=== PATIENT | female | born 1955 | race Caucasian/White ===

== ENCOUNTER → 2017-02-22 | Outpatient (CLI) | payer OTHER ==
[~2017-02-22] MED LIST: ARMO50TA2 PO; ASCO500C PO; CALC600T PO; CHOL20004 PO; CLON0.1T PO; CYCL10TA2 PO; ERGO500012 PO; ESTR42.53 VG; EZET1TAB19 PO; FERR-26 PO; GABA-586 PO; GLYB2.5T2 PO; HYDR-2666 PO; IBUP200T77 PO; LEVO100T5 PO; LISI-334 PO; MAGN250T5 PO; MELO-156 PO; MULT1CAP15 PO; OXYB5TAB7 PO; SITA1TAB11 PO; ZALE10CA PO; ZINC50TA29 PO
== END | disposition home or self-care (01) ==
LOC: LAB 10:07
PROVIDERS: ATTEND Family Medicine
DX: E11.9 Type 2 diabetes mellitus without complications (principal)
CPT/HCPCS: 36415; 83036

== ENCOUNTER → 2018-08-09 | Outpatient (CLI) | payer OTHER ==
[~2018-08-09] MED LIST changes: -CHOL20004 PO; +CHOL200074 PO; -ERGO500012 PO; +ERGO500027 PO; -EZET1TAB19 PO; +EZET1TAB41 PO; -FERR-26 PO; +FERR325T14 PO; -HYDR-2666 PO; +HYDR-2758 PO; +MAGN250T10 PO; -MAGN250T5 PO; -MELO-156 PO; +MELO7.5T29 PO
--- NOTE | 2018-08-09 15:02 | CARD ---
MR#: [id number] Date of Study: 08/09/2018 Ordering Physician: JANES FIELDS, Referring Physician: JANES FIELDS Tech: Aria Gonzalez RDCS APPROVED REPORT EXAM: Two-dimensional and M-mode echocardiogram with Doppler and color Doppler. Other Information Quality : GoodHR: 83bpm Rhythm : NSR INDICATION Hypertension/HCVD 2D DIMENSIONS RVDd3.7 (2.9-3.5cm)IVSd1.4 (0.7-1.1cm) Aortic Root(2D)3.3 (2.0-3.7cm)LVDd4.0 (3.9-5.9cm) LVOT Diameter2.2 (1.8-2.4cm)PWd0.9 (0.7-1.1cm) LVDs2.1 (2.5-4.0cm)FS (%) 48.0 % SV56.2 mlLVEF(%)79.9 (>50%) M-Mode DIMENSIONS RVDd2.86 (2.1-3.2cm)Left Atrium(MM)3.57 (2.5-4.0cm) IVSd1.25 (0.7-1.1cm)Aortic Root2.60 (2.2-3.7cm) LVDd4.72 (4.0-5.6cm)PWd0.86 (0.7-1.1cm) IVSs1.39 cmFS (%) 48 % LVDs2.43 (2.0-3.8cm)ESV(Teich)20.8 ml PWs1.54 cmLVEF(%)80 (>50%) Aortic Valve AoV Peak Justyn.156.0cm/sAoV VTI30.1cm AO Peak GR.9.7mmHgLVOT Peak Justyn.123.3cm/s AO Mean GR.6mmHgAVA (VMAX)3.07cm2 ORI (VTI)2.80cm2 Mitral Valve MV E Fwxgbmef07.9cm/sMV E Peak Gr.4mmHg MV DECEL [id number] A Klparbfm187.3cm/s MV E Mean Gr.2mmHgE/A Ratio0.6 MV A Qrkbmsrc54um Pulmonary Valve PV Peak Hgzussji914.2cm/s Tricuspid Valve TR P. Zknkqtoo313xm/sRAP YTYXVGHQ2gjQk TR Peak Gr.70agOzBVWJ42kwTy Pulmonary Vein S1 Aqoyrdnn16.3cm/sD2 Ekmamfhy52.5cm/s PVa cjlotcbc37znok LEFT VENTRICLE The left ventricle is normal size. There is mild concentric left ventricular hypertrophy. The left ve ntricle is hyperdynamic. The Ejection Fraction is >70%. There is normal LV segmental wall motion. Tra nsmitral Doppler flow pattern is Grade I-abnormal relaxation pattern. RIGHT VENTRICLE The right ventricle is borderline dilated. There is normal right ventricular wall thickness. The righ t ventricular systolic function is normal. ATRIA The left atrium size is normal. The right atrium size is normal. The interatrial septum is intact wit h no evidence for an atrial septal defect or patent foramen ovale as noted on 2-D or Doppler imaging. AORTIC VALVE The aortic valve is thickened but opens well. Doppler and Color Flow revealed no significant aortic r egurgitation. There is no significant aortic valvular stenosis. MITRAL VALVE The mitral valve is normal in structure and function. There is no evidence of mitral valve prolapse. There is no mitral valve stenosis. Doppler and Color Flow revealed no mitral valve regurgitation note d. TRICUSPID VALVE The tricuspid valve is normal in structure and function. Doppler and Color Flow revealed trace tricus pid regurgitation. The PA pressure was estimated at 32 mmHg. Doppler and Color Flow revealed mild pul monary hypertension. There is no tricuspid valve prolapse or vegetation. There is no tricuspid valve stenosis. PULMONIC VALVE The pulmonary valve is normal in structure and function. Doppler and Color Flow revealed no pulmonic valvular regurgitation. There is no pulmonic valvular stenosis. GREAT VESSELS The aortic root is normal in size. The ascending aorta is normal in size. The IVC is normal in size a nd collapses >50% with inspiration. PERICARDIAL EFFUSION There is no evidence of significant pericardial effusion. Critical Notification Critical Value: No <Conclusion> The left ventricle is hyperdynamic. The Ejection Fraction is >70%. There is normal LV segmental wall motion. Signed by : Kirt Guerrero, Electronically Approved : 08/09/2018 15:01:35
== END | disposition home or self-care (01) ==
LOC: ECHO 13:57
PROVIDERS: ATTEND Internal Medicine Cardiovascular Disease
DX: I27.20 Pulmonary hypertension, unspecified (principal); E55.9 Vitamin D deficiency, unspecified; I10 Essential (primary) hypertension; E03.9 Hypothyroidism, unspecified; E78.00 Pure hypercholesterolemia, unspecified; Z72.0 Tobacco use
CPT/HCPCS: 93306

== ENCOUNTER 2019-06-18 13:05 | Emergency (ER) | payer OTHER, MEDICARE ==
[~2019-06-18] VITALS: Ht 167.6 cm; Wt 85.7 kg
[~2019-06-18 13:05] MED LIST changes: -GABA-586 PO; +GABA300C18 PO; -HYDR-2758 PO; +HYDR-2761 PO; -ZINC50TA29 PO; +ZINC50TA39 PO
[2019-06-18 13:21] VITALS: BP 152/78
--- NOTE | 2019-06-18 14:13 | PHYS DOC ---
Past Medical History Past Medical History: Constipation, Diabetes-Type II, High Cholesterol, H ypertension, Hypothyroid, Other Additional Past Medical Histor: SLEEP APNEA,CHRONIC PAIN Past Surgical History: Other Additional Past Surgical Histo: LEFT KNEE SURGERY,THYROID LUMPECTOMY Smoking: Quit Greater Than 1 Year Alcohol Use: Occasionally Drug Use: None Adult General Chief Complaint Chief Complaint: KNEE INJURY [facility] HPI Patient is a 64 year old female who presents with right knee pain. Pain started 1 week ago after she hyperextended her knee. The patient states she bent down yesterday and heard pop in her right knee and severe pain started at that point. The patient's been icing her knee, but has had difficulty bearing weight on the knee today. Rates her pain as 10 out of 10 in severity, and sharp. Review of Systems Review of Systems Constitutional: Denies fever or chills [] Eyes: Denies change in visual acuity, redness, or eye pain [] HENT: Denies nasal congestion or sore throat [] Respiratory: Denies cough or shortness of breath [] Cardiovascular: No additional information not addressed in HPI [] : Denies dysuria or hematuria [] Musculoskeletal: Reports R knee pain. Integument: Denies rash or skin lesions [] Neurologic: Denies headache, focal weakness or sensory changes [] Complete systems were reviewed and found to be within normal limits, except as documented in this note. Current Medications Current Medications Current Medications Medications (Trade) Dose Ordered Sig/[facility] Start Time Stop Time Status Last Admin Dose Admin Ketorolac Tromethamine (Toradol Im) 30 mg 1X ONCE 06/18/19 14:45 06/18/19 14:46 DC 06/18/19 14:45 30 MG Allergies Allergies Allergies Coded Allergies Type Severity Reaction Last Updated Verified No Known Drug Allergies 03/12/14 No Physical Exam Physical Exam Constitutional: Well developed, well nourished, no acute distress, non-toxic ap pearance. [] HENT: Normocephalic, atraumatic, bilateral external ears normal, oropharynx moist, no oral exudates, nose normal. [] Eyes: PERRLA, EOMI, conjunctiva normal, no discharge. [] Neck: Normal range of motion, no tenderness, supple, no stridor. [] Cardiovascular:Heart rate regular rhythm, no murmur [] Lungs & Thorax: Bilateral breath sounds clear to auscultation [] Abdomen: Bowel sounds normal, soft, no tenderness, no masses, no pulsatile masses. [] Skin: Warm, dry, no erythema, no rash. [] Extremities: R knee tenderness and mild edema. Neurologic: Alert and oriented X 3, normal motor function, normal sensory function, no focal deficits noted. [] Psychologic: Affect normal, judgement normal, mood normal. [] Current Patient Data Vital Signs Vital Signs Date Time Temp Pulse Resp B/P (MAP) Pulse Ox O2 Delivery O2 Flow Rate FiO2 06/18/19 13:21 98.3 112 20 152/78 (102) 98 Room Air 98.3 EKG EKG [] Radiology/Procedures Radiology/Procedures [] PATIENT: ASHU HUNTER ACCOUNT: [id number] : 1955 LOCATION: ER AGE: 64 SEX: F EXAM STATUS: REG ER ORD. PHYSICIAN: YINA SWARZT APRN REASON: PAIN WITH LIMITED RANGE OF MOTION, NO KNOWN INJURY PROCEDURE: KNEE RIGHT 3V Right knee 3 views. HISTORY: Pain with limited range of motion 3 views were taken of the right knee. There is mild arthritis with mild spurring. There is no fracture or joint effusion or other osseous abnormality. IMPRESSION: 1. Mild arthritis right knee. Electronically signed by: Robi Feng MD (06/18/2019 2:32 PM) [facility] DICTATED and SIGNED BY: ROBI FENG MD DATE: 06/18/19 1437 Course & Med Decision Making Course & Med Decision Making Pertinent Labs and Imaging studies reviewed. (See chart for details) Will get x-ray. xray is negative. Will have follow up with orthopedics. Will place in knee brace. Dragon Disclaimer Dragon Disclaimer This electronic medical record was generated, in whole or in part, using a voice recognition dictation system. Departure Departure Impression: Primary Impression: Knee pain, acute Disposition: 01 HOME, SELF-CARE Condition: STABLE Referrals: SHANNON SEPULVEDA (PCP) HANG PRICE MD Patient Instructions: Knee Pain Additional Instructions: Thank you for visiting [facility]. We appreciate you trusting us with your care. If any additional problems come up don't hesitate to return to visit us. Please follow up with your primary care provider so they can plan additional care if needed and know about the problem that you had. If symptoms worsen come back to the Emergency Department. Any concerning symptoms that start such as chest pain, shortness of air, weakness or numbness on one side of the body, running high fevers or any other concerning symptoms return to the ER. Problem Qualifiers Primary Impression: Knee pain, acute Laterality: right Qualified Codes: M25.561 - Pain in right knee YINA SWARTZ APRN Jun 18, 2019 14:13
--- NOTE | 2019-06-18 14:35 | RAD ---
Right knee 3 views. HISTORY: Pain with limited range of motion 3 views were taken of the right knee. There is mild arthritis with mild spurring. There is no fracture or joint effusion or other osseous abnormality. IMPRESSION: 1. Mild arthritis right knee. Electronically signed by: Robi Feng MD (06/18/2019 2:32 PM) [facility]
[2019-06-18] MEDS ORDERED: KETOROLAC 60 MG/2 ML VIAL. IM ONE (14:45)
== END 2019-06-18 15:13 | disposition home or self-care (01) ==
LOC: ER 13:05
DX: M25.561 Pain in right knee (principal); M17.11 Unilateral primary osteoarthritis, right knee; E78.00 Pure hypercholesterolemia, unspecified; E11.9 Type 2 diabetes mellitus without complications; I10 Essential (primary) hypertension; E03.9 Hypothyroidism, unspecified; G89.29 Other chronic pain; Z87.891 Personal history of nicotine dependence
CPT/HCPCS: 29505; 73562; 96372; 99284; J1885

== ENCOUNTER → 2019-06-29 | Outpatient (CLI) | payer BC, OTHER ==
[2019-06-18 13:21] VITALS: BP 152/78
--- NOTE | 2019-06-29 17:17 | KCIC ---
MR of the right knee HISTORY: Acute pain of the right knee. Twisting injury, heard a pop, 2 weeks ago. Medial pain. TECHNIQUE: Routine multiplanar sequences are obtained. FINDINGS: Degenerative tear of the medial meniscus. No evidence of lateral meniscal tear. Anterior and posterior cruciate ligaments are intact. Medial collateral ligament is intact. Iliotibial band unremarkable. Fibular collateral ligament, biceps femoris tendon and popliteus tendon are intact. Extensor mechanism is intact. Small joint effusion. Moderate chondral thinning at the patella. Severe chondral thinning at the medial joint compartment. Mild degenerative spurring at the lateral joint. IMPRESSION: 1. Medial meniscal tear. 2. Primary osteoarthritis. Electronically signed by: Jean Duke MD (06/29/2019 5:14 PM) [facility]
== END | disposition home or self-care (01) ==
LOC: KCIC MRI 15:29
PROVIDERS: ATTEND Orthopaedic Surgery
DX: S83.241A Other tear of medial meniscus, current injury, right knee, initial encounter (principal); M17.11 Unilateral primary osteoarthritis, right knee; M25.461 Effusion, right knee; X50.1XXA Overexertion from prolonged static or awkward postures, initial encounter; Y93.89 Activity, other specified; Y92.89 Other specified places as the place of occurrence of the external cause; Y99.8 Other external cause status
CPT/HCPCS: 73721

== ENCOUNTER 2019-12-12 07:06 | Day surgery (SDC) | payer OTHER ==
[~2019-12-12] VITALS: Ht 170.2 cm; Wt 90.5 kg
[~2019-12-12 07:06] MED LIST changes: +CINN500C2 PO; +DIPH25CA58 PO; +EZET1TAB30 PO; +HYDR-2769 PO; +HYDROmorphone 2 MG/ML VIAL IV PRN; +IV RINGERS,LACTATED 1000ML 1,000 ML IV SCH; +LIDOCAINE 1% PF 2 ML VIAL. ID PRN; +MORPHINE SULFATE 2 MG/ML VIAL. IV PRN; +ONDANSETRON PF 4 MG/2 ML VIAL. IV PRN; +OXYB5TAB10 PO; -OXYB5TAB7 PO; +PROCHLORPERAZINE 10 MG/2 ML VIAL. IV PRN; +VIT1TABL32 PO; +ZALE5CAP PO; +fentaNYL PF VIAL 100 MCG/2 ML VIAL IV PRN
[2019-12-12] MEDS ORDERED: BUPIVACAINE MPF 0.5% 30 ML VIAL. ONE (07:26)
[2019-12-12] MEDS ORDERED: BUPIVACAINE-EPI 0.5%-1:200000 MPF 30 ML VIAL. ONE (07:26)
--- NOTE | 2019-12-12 07:55 | EKG ---
[facility] [address] [place] [address] Test Date: 2019-12-12 Test Time: 07:41:40 Pat Name: ASHU HUNTER Department: Room: Gender: F Supervisor [employer]: : 1955 Requested By: HANG PRICE Order Number: [id number] Reading MD: Measurements Intervals [place] Rate: 96 P: 34 FL: 146 QRS: -5 QRSD: 90 T: 9 QT: 346 QTc: 444 Interpretive Statements SINUS RHYTHM LEFTWARD AXIS QRS(T) CONTOUR ABNORMALITY CONSISTENT WITH INFERIOR INFARCT AGE UNDETERMINED ABNORMAL ECG RI6.01 Compared to ECG 05/27/2015 08:44:02 Left-axis deviation now present Myocardial infarct finding still present
[2019-12-12] MEDS ORDERED: INSULIN LISPRO 100 UNIT/ML 3ML VIAL for OP,RR ONLY. SQ PRN (08:00)
[2019-12-12] MEDS ORDERED: PROPOFOL 20 ML IV ONE (09:08)
[2019-12-12] MEDS ORDERED: ONDANSETRON PF 4 MG/2 ML VIAL. ONE (09:08)
[2019-12-12] MEDS ORDERED: LIDOCAINE 2% PF 5 ML VIAL. ONE (09:08)
[2019-12-12] MEDS ORDERED: MIDAZOLAM HCL/PF 2 MG/2 ML VIAL. ONE (09:08)
[2019-12-12] MEDS ORDERED: fentaNYL PF VIAL 100 MCG/2 ML VIAL ONE ×2 (09:08→11:03)
[2019-12-12] MEDS ORDERED: DEXAMETHASONE SOD PHOS 4 MG/ML VIAL ONE (09:11)
[2019-12-12] MEDS ORDERED: ePHEDrine PF IN SALINE 50 MG/10 ML SYRINGE. IV ONE (09:30)
[2019-12-12] MEDS ORDERED: SEVOFLURANE 61 TO 120 MINUTES. IH ONE (09:33)
[2019-12-12] MEDS ORDERED: HYDR-3165 PO (09:37)
--- NOTE | 2019-12-12 09:39 | DISCH ---
DISCHARGE INSTRUCTIONS Condition on Discharge Condition on Discharge: Stable Activity After Discharge Activity Instructions for Disc: Progressive ambulation (slow advance to normal activity is symptomatically tolerated, elevate and ice leg to control swelling when not ambulatory) Diet after Discharge Diet after Discharge: Regular Wound Incision Care Wound/Incision Care: Change dressing (remove dressing in 2 days may then shower no soaking until sutures removed) Contacting the after DC Call your doctor for: Concerns you may have (report any excessive swelling or calf tenderness) Follow-Up Follow up with: Dr. Tucker 1 week HANG TUCKER MD Dec 12, 2019 09:39
--- NOTE | 2019-12-12 10:26 | PDOC4 ---
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 Estimated blood loss: 2 mL Complications: None Operative indications: Please see my orthopedic clinic note for detailed operative indications and note that the patient has been having mechanical symptoms particularly with pivoting and twisting and MRI consistent with her clinical examination findings of a medial meniscus tear. I had gone over with her the structure and function the meniscus the operative and nonoperative treatment options the rationale for operative treatment and the fact that while the meniscectomy can satisfactorily address the mechanical symptoms I cannot undo any symptoms secondary to wear and tear in the knee which would have to be treated symptomatically as necessary in the future. We also talked about the pos sibility of infection nerve or blood vessel damage continued pain medical or other anesthetic consultations among others all her questions were answered she wishes to proceed with surgical evaluation and treatment having given informed consent Operative text: Patient was identified procedure verified patient placed in the supine position on the operating table. After adequate amounts of general anesthesia were administered a thigh tourniquet was placed and the right lower extremity was prepped and draped in standard sterile fashion. After timeout was performed patient procedure identified and verified the right lower extremity was exsanguinated by Esmarch bandage tourniquet inflated to 250 mmHg a lateral portal was established a medial portal established using spinal localization and the knee joint was systematically examined. She was noted to have grade 2-3 chondromalacia over the central patellar facet extending somewhat laterally which was trimmed back to stable tissue with the arthroscopic shaver no debr idement necessary in the trochlear groove. No loose bodies were noted in the gutters or suprapatellar pouch she was found to have a displaceable tear involving the body and posterior horn of the medial meniscus which was trimmed back to stable tissue and involved approximately 50% of the meniscal rim and was radiused appropriately to achieve stable tissue in the posterior horn. She was found to have grade 2-3 chondromalacia on the weightbearing surface of the medial femoral condyle which was lightly trimmed back to stable tissue with the arthroscopic shaver. ACL was probed and found be intact. The lateral meniscus was found to have free edge tearing in the body and anterior horn area primarily trimmed back to stable tissue using arthroscopic shaver and involving only the inner 10-15% of the meniscal rim. She also had a chondral flap tear on the anterior weightbearing surface of the distal femur which was trimmed back to stable tissue and was not full-thickness in nature. At this time I switched portals and radiused the body area of the medial meniscus and the knee was again toured to ensure no loose cartilaginous bodies remained in the notch gutters suprapatellar pouch areas. The knee was then drained of arthroscopic fluid fat pad and portal areas injected with half percent plain Marcaine portals were closed with nylon suture sterile dressings were applied toes were noted be warm pink find deflation of tourniquet patient was returned to recovery room in stable condition having tolerated procedure well. Wilian singer was present for the procedure and assisted in the positioning prepping draping retraction and skin closure and dressing placement HANG PRICE MD Dec 12, 2019 10:26
[2019-12-12] MEDS ORDERED: HYDROcodone/APAP 7.5/325MG 1 TAB TABLET PO ONE (11:30)
[2019-12-12 11:51] VITALS: BP 146/79
== END 2019-12-12 12:06 | disposition home or self-care (01) ==
LOC: SURG 07:06
PROVIDERS: ATTEND Orthopaedic Surgery
DX: S83.241A Other tear of medial meniscus, current injury, right knee, initial encounter (principal); S83.281A Other tear of lateral meniscus, current injury, right knee, initial encounter; M94.261 Chondromalacia, right knee; I10 Essential (primary) hypertension; E78.00 Pure hypercholesterolemia, unspecified; G47.30 Sleep apnea, unspecified; E11.9 Type 2 diabetes mellitus without complications; E03.9 Hypothyroidism, unspecified; E66.9 Obesity, unspecified; Z68.31 Body mass index [BMI] 31.0-31.9, adult; Z87.891 Personal history of nicotine dependence; Z87.39 Personal history of other diseases of the musculoskeletal system and connective tissue; Z72.89 Other problems related to lifestyle; Z79.84 Long term (current) use of oral hypoglycemic drugs; X58.XXXA Exposure to other specified factors, initial encounter; Y93.89 Activity, other specified; Y92.89 Other specified places as the place of occurrence of the external cause; Y99.8 Other external cause status
CPT/HCPCS: 29880; 82962; 93005; A7015; C1782; J0171; J0696; J1100; J2001; J2250; J2405; J2704; J3010; J3490

== ENCOUNTER → 2020-08-28 | Outpatient (CLI) | payer MEDICARE ==
[~2020-08-28] MED LIST changes: +HYDR-3165 PO; -HYDROmorphone 2 MG/ML VIAL IV PRN; -IV RINGERS,LACTATED 1000ML 1,000 ML IV SCH; -LIDOCAINE 1% PF 2 ML VIAL. ID PRN; -MORPHINE SULFATE 2 MG/ML VIAL. IV PRN; -ONDANSETRON PF 4 MG/2 ML VIAL. IV PRN; -PROCHLORPERAZINE 10 MG/2 ML VIAL. IV PRN; -fentaNYL PF VIAL 100 MCG/2 ML VIAL IV PRN
--- NOTE | 2020-08-28 16:04 | CARD ---
MR#: [id number] Date of Study: 08/28/2020 Ordering Physician: JANES FIELDS, Referring Physician: JANES FIELDS Tech: Yamile Mccloud RDCS APPROVED REPORT EXAM: Two-dimensional and M-mode echocardiogram with Doppler and color Doppler. Other Information Quality : Good INDICATION Hypertension/HCVD 2D DIMENSIONS RVDd3.3 (2.9-3.5cm)Left Atrium(2D)3.7 (1.6-4.0cm) IVSd1.2 (0.7-1.1cm)Aortic Root(2D)3.0 (2.0-3.7cm) LVDd3.5 (3.9-5.9cm)LVOT Diameter2.3 (1.8-2.4cm) PWd1.2 (0.7-1.1cm)LVDs1.3 (2.5-4.0cm) FS (%) 30.2 %SV45.3 ml LVEF(%)60.0 (>50%) Aortic Valve AoV Peak Justyn.145.3cm/sAoV VTI23.4cm AO Peak GR.8.4mmHgLVOT Peak Justyn.121.1cm/s AO Mean GR.5mmHgAVA (VMAX)3.37cm2 Mitral Valve MV E Rtifuhih79.3cm/sMV DECEL HXDF119uy MV A Teqhplpt009.1cm/sE/A Ratio0.6 Tricuspid Valve TR P. Eaprgxky543hu/sRAP JUJPPQPH4enSj TR Peak Gr.21olSjAHGP09zwOy Pulmonary Vein S1 Qmxagygk834.0cm/sD2 Iifqhaee79.7cm/s LEFT VENTRICLE The left ventricle cavity is small. There is mild concentric left ventricular hypertrophy. The left v entricular systolic function is normal. The Ejection Fraction is 60-65%. There is normal LV segmental wall motion. Transmitral Doppler flow pattern is Grade I-abnormal relaxation pattern. RIGHT VENTRICLE The right ventricle is normal size. The right ventricular systolic function is normal. ATRIA The left atrium size is normal. The right atrium size is normal. The interatrial septum is intact wit h no evidence for an atrial septal defect or patent foramen ovale as noted on 2-D or Doppler imaging. AORTIC VALVE The aortic valve is calcified but opens well. Doppler and Color Flow revealed no significant aortic r egurgitation. There is no significant aortic valvular stenosis. MITRAL VALVE The mitral valve is mildly thickened but opens well. There is no evidence of mitral valve prolapse. T here is no mitral valve stenosis. Doppler and Color Flow revealed no mitral valve regurgitation noted . TRICUSPID VALVE The tricuspid valve is normal in structure and function. Doppler and Color Flow revealed trace tricus pid regurgitation. The PA pressure was estimated at 34 mmHg. There is mild pulmonary hypertension. Th ere is no tricuspid valve stenosis. PULMONIC VALVE The pulmonic valve is not well visualized. Doppler and Color Flow revealed no pulmonic valvular regur gitation. There is no pulmonic valvular stenosis. GREAT VESSELS The aortic root is normal in size. The ascending aorta is normal in size. The IVC is normal in size a nd collapses >50% with inspiration. PERICARDIAL EFFUSION There is no evidence of significant pericardial effusion. Critical Notification Critical Value: No <Conclusion> The left ventricular systolic function is normal. The Ejection Fraction is 60-65%. There is normal LV segmental wall motion. Transmitral Doppler flow pattern is Grade I-abnormal relaxation pattern. Trace tricuspid regurgitation. The PA pressure was estimated at 34 mmHg. There is no evidence of significant pericardial effusion. Signed by : Janes Fields, Electronically Approved : 08/28/2020 16:04:02
== END ==
LOC: ECHO 13:37
PROVIDERS: ATTEND Internal Medicine Cardiovascular Disease
DX: I11.9 Hypertensive heart disease without heart failure (principal); I27.20 Pulmonary hypertension, unspecified
CPT/HCPCS: 93306

== ENCOUNTER → 2022-03-19 | Outpatient (CLI) | payer MEDICARE ==
[~2022-03-19] MED LIST changes: +CYCL10TA19 PO; -CYCL10TA2 PO; -LISI-334 PO; +LISI20TA18 PO; +REGADENOSON 0.4 MG/5 ML DISP.SYRIN. IV ONE
--- NOTE | 2022-03-19 16:09 | RAD ---
MR#: [id number] Date of Study: 03/19/2022 Ordering Physician: JANES FIELDS, Referring Physician: MANUEL BALBUENA Tech: ANGÉLICA Marks ARRT (R) (N) APPROVED REPORT Test Type: Pharmacological Stress Nurse/Tech: Austin Jameson RN Test Indications: pre-op clearance Cardiac History: High cholesterol, HTN, DM Medications: See Electronic Medical Record Medical History: See Electronic Medical Record Resting ECG: SR Resting Heart Rate: 74 bpm Resting Blood Pressure: 115/63mmHg Pretest Chest Pain: None Nurse/Tech Notes Lungs CTA, S1S2 Consent: The procedure was explained to the patient in lay terms. Informed consent was witnessed. Micheal eout was entered into [employer]. History and Stress Test performed by ANGÉLICA Marks ARRT (R) (N) Pharm. Details Pharmacologic stress testing was performed using 0.4mg per 5ml of regadenoson given intravenously ove r 7-10 seconds. Stress Symptoms No chest pain or symptoms. POST EXERCISE Reason for Termination: Infusion complete Max HR: 98 bpm Max Blood Pressure: 117/57mmHg Blood Pressure response to exercise: Normal blood pressure response during stress. Heart Rate response to exercise: normal response Chest Pain: No. Arrhythmia: No. ST Change: No. INTERPRETATION Stress EKG Conclusion: Baseline EKG showed sinus rhythm. No ischemic changes at peak stress. No arr hythmias. Imaging Protocol IMAGE PROTOCOL: Rest Tc-99m/stress Tc-99m 1 day Rest: Stress: Viability: Radiopharm.Tc99m GclcthporLo83f Sestamibi Dose10.3mCi 33mCi Img Date 03/19/2022 03/19/2022 Inj-Img Wcik64vob. 60min. Rest Admin Site:IV - Right AntecubitalAdministrator:ANGÉLICA Marks ARRT (R)(N) Stress Admin Site: IV - Right AntecubitalAdministrator: RT Shawn (R)(N) STRESS DATA End Diast. Vol.70.0mlLVEDV index BSA38.0ml End Syst. Vol.13.0mlLVESV index BSA7.0ml Myocardial Juzb176.0gEject. Folkcyne88.0% Stress Scores Regional WT1.00Summed WT7.00 Regional WM0.00Summed WM0.00 Study quality was good. Left Ventricular size was Normal at Rest and Stress. Lung uptake was . Left Ventricular ejection fraction is 88%. The rest and stress images show normal perfusion, normal contraction and thickening. LV Perf. Quant 17 Seg. SSS1.00 17 Seg. SRS0.00 17 Seg. SDS1.00 Stress Defect Extent (% LAD)0.00Rest Defect Extent (% LAD)0.00Rev. Defect Extent (% LAD)0.00 Stress Defect Extent (% LCX) 7.50Rest Defect Extent (% LCX)0.00Rev. Defect Extent (% LCX)7.50 Stress Defect Extent (% RCA)0.00Rest Defect Extent (% RCA)0.00Rev. Defect Extent (% RCA)0.00 Stress Defect Extent (% ABAD)1.30Rest Defect Extent (% ABAD)0.00Rev. Defect Extent (% ABAD)1.30 Conclusion 1. Regadenoson cardioisotope stress test did not show any evidence of ischemia or infarct. 2. Normal left ventricular systolic function with ejection fraction calculated at 88%. 3. Low risk for cardiac events. Signed by : Janes Fields, Electronically Approved : 03/19/2022 16:08:50
== END ==
LOC: NM 07:51
PROVIDERS: ATTEND Internal Medicine Cardiovascular Disease
DX: Z01.810 Encounter for preprocedural cardiovascular examination (principal)
CPT/HCPCS: 78452; 93017; A9500; J2785

== ENCOUNTER → 2022-03-30 | Outpatient (CLI) | payer MEDICARE ==
[~2022-03-30] MED LIST changes: -REGADENOSON 0.4 MG/5 ML DISP.SYRIN. IV ONE
--- NOTE | 2022-03-31 12:21 | CARD ---
MR#: [id number] Date of Study: 03/30/2022 Ordering Physician: JANES FIELDS, Referring Physician: Robert BALBUENA: KANIKA SAWANT [facility] APPROVED REPORT EXAM: Two-dimensional and M-mode echocardiogram with Doppler and color Doppler. Other Information Quality : AverageHR: 89bpm Rhythm : NSRTechnically limited study due to body habitus. INDICATION Pre-Op RISK FACTORS Hypertension 2D DIMENSIONS Left Atrium(2D)2.9 (1.6-4.0cm)IVSd1.0 (0.7-1.1cm) Aortic Root(2D)2.6 (2.0-3.7cm)LVDd3.9 (3.9-5.9cm) LVOT Diameter2.2 (1.8-2.4cm)PWd1.0 (0.7-1.1cm) LVDs2.4 (2.5-4.0cm)FS (%) 38.0 % SV44.9 mlLVEF(%)68.8 (>50%) Aortic Valve AoV Peak Justyn.140.5cm/Javed Peak GR.10.3mmHg LVOT Peak Justyn.102.5cm/sAVA (VMAX)2.66cm2 Mitral Valve MV E Gpaksqog05.3cm/sMV DECEL [id number] MV A Skzrbmye82.5cm/sE/A Ratio0.6 Pulmonary Valve PV Peak Npitdqrb73.9cm/s Tricuspid Valve TR P. Ockzuzlg958lb/sRAP [id number] TR Peak Gr.[id number] Pulmonary Vein S1 Rzaiaovx96.9cm/sD2 Klrxzvfz36.3cm/s PVa [id number] LEFT VENTRICLE The left ventricle is normal size. There is normal left ventricular wall thickness. The left ventricu lar systolic function is normal and the ejection fraction is within normal range. The Ejection Fracti on is 60-65%. No regional wall motion abnormalities noted. The left ventricular diastolic function is normal. No left ventricle thrombus noted on this study. There is no ventricular septal defect visual ized. There is no left ventricular aneurysm. There is no mass noted in the left ventricle. RIGHT VENTRICLE The right ventricle is normal size. There is normal right ventricular wall thickness. The right ventr icular systolic function is normal. ATRIA The left atrium size is normal. The right atrium size is normal. The interatrial septum is intact wit h no evidence for an atrial septal defect or patent foramen ovale as noted on 2-D or Doppler imaging. AORTIC VALVE The aortic valve is normal in structure and function. No aortic regurgitation is present. There is no aortic valvular stenosis. There is no aortic valvular vegetation. MITRAL VALVE The mitral valve is normal in structure and function. There is no evidence of mitral valve prolapse. There is no mitral valve stenosis. There is no mitral valve regurgitation noted. TRICUSPID VALVE The tricuspid valve is normal in structure and function. Doppler and Color Flow revealed trace to mil d tricuspid regurgitation. The pulmonary artery systolic pressure is estimated at less than 30 mmHg. There is no tricuspid valve prolapse or vegetation. There is no tricuspid valve stenosis. PULMONIC VALVE There is no pulmonic valvular regurgitation. There is no pulmonic valvular stenosis. GREAT VESSELS The aortic root is normal in size. The ascending aorta is normal in size. The IVC is normal in size a nd collapses >50% with inspiration. PERICARDIAL EFFUSION There is no pleural effusion. There is no evidence of significant pericardial effusion. Critical Notification Critical Value: No <Conclusion> The left ventricular systolic function is normal and the ejection fraction is within normal range. Th e Ejection Fraction is 60-65%. No regional wall motion abnormalities noted. Doppler and Color Flow revealed trace to mild tricuspid regurgitation. The pulmonary artery systolic pressure is estimated at less than 30 mmHg. Signed by : Kirt Guerrero, Electronically Approved : 03/30/2022 17:28:25
== END ==
LOC: ECHO 12:35
PROVIDERS: ATTEND Internal Medicine Cardiovascular Disease
DX: Z01.810 Encounter for preprocedural cardiovascular examination (principal); I07.1 Rheumatic tricuspid insufficiency
CPT/HCPCS: 93306; C8929